=== PATIENT | male | born 1955 | race Caucasian/White ===

== ENCOUNTER 2021-03-15 00:49 | Inpatient (IN) | payer MEDICARE, MEDICAID ==
[2021-03-15 01:40] LABS: Actual Bicarbonate (HCO3a) 33.9 mEq/L (22-28); Analyzer IN Cardio ER; Base Excess (BEa) 7.1 mEq/L (-2.0 to +3.0); CO2 Tension 56.7 mmHg (35.0-45.0); Calcium, Ionized (arterial) 1.22 mmol/L (1.12-1.30); Carboxyhemoglobin (COHb) 0.3 gm% (0.0-3.0); Hemoglobin (Hb) 14.4 g/dL (14.0-18.0); O2 Tension (PaO2), arterial 71.2 mmHg (> 80.0); Potassium - ABG Lab 3.98 mmol/L (3.70-5.30); pH, Arterial 7.39 (7.35-7.45)
[2021-03-15 01:41] LABS: Puncture Site RRA
[2021-03-15 01:42] LABS: ALV-art Gradient 428.325 mmHg (0-20)
[2021-03-15 02:16] LABS: #Lymphocytes 0.9 thou/uL (1.20-3.40); #Neutrophils 10.1 thou/uL (1.40-6.50); %Basophils 0.2 % (0.0-1.0); %Eosinophils 0.2 % (0.0-10.0); %Lymphocytes 7.4 % (21.0-51.0); %Monocytes 8.6 % (0.0-10.0); %Neutrophils 83.6 % (42.0-75.0); Hemoglobin 13.3 g/dL (14.0-18.0); Mean Corpuscular Hemoglobin 26.5 pg (27.0-31.0); Mean Corpuscular Volume 80.2 fL (78.0-98.0); Mean Platelet Volume 7.2 fL (7.4-10.4); Platelet Count 405 thou/uL (130-400); RBC Distribution Width 15.2 % (11.5-14.5); Red Blood Cell (RBC) Count 5.02 mill/uL (4.70-6.10); White Blood Cell (WBC) Count 12.1 thou/uL (4.8-10.8)
[2021-03-15 02:40] LABS: ALT (SGPT) 18 U/L (8-55); AST (SGOT) 11 U/L (5-34); Albumin 3.8 g/dL (3.4-4.8); Alkaline Phosphatase 87 U/L (40-110); Anion Gap 18 mmol/L (10-20); BUN (Urea Nitrogen) 36 mg/dL (8.4-25.7); Bilirubin, Total 0.4 mg/dL (0.2-1.2); Calc. Creatinine Clearance 0 mL/min (70-130); Calcium 10.2 mg/dL (7.8-10.44); Carbon Dioxide 33 mmol/L (23-31); Chloride 87 mmol/L (98-107); Glucose 415 mg/dL (80-115); Magnesium 2.5 mg/dL (1.6-2.6); Potassium 4.2 mmol/L (3.5-5.1); Protein, Total 7.8 g/dL (5.8-8.1); Sodium 134 mmol/L (136-145)
[2021-03-15] MEDS ORDERED: Ondansetron PF 4 MG/2 ML Vial IVP PRN (04:16)
[2021-03-15] MEDS ORDERED: Dextrose 5% in Water 1,000 ML IV PRN (04:23)
[2021-03-15] MEDS ORDERED: Dextrose 50% Abboject 50 ML SYRINGE SLOW IVP PRN (04:23)
[2021-03-15] MEDS ORDERED: Albuterol Sulfate 2.5 mg/3 ml Neb NEB PRN (04:37)
[2021-03-15 05:12] LABS: Troponin I Less than 0.010 ng/mL (< 0.028)
[2021-03-15] MEDS ORDERED: HumaLOG 300 UNITS/3 ML VIAL ONE (05:40)
[2021-03-15] MEDS: HumaLOG 300 UNITS/3 ML VIAL SC PRN ×3 (05:41→23:35)
[2021-03-15 07:06] LABS: Hemoglobin A1c Greater than 14.0 % (4.0-6.0)
[2021-03-15 07:24] LABS: Troponin I Less than 0.010 ng/mL (< 0.028)
[2021-03-15] MEDS: Dexamethasone 10 MG/ML VIAL SLOW IVP SCH (08:06)
[2021-03-15] MEDS: Ascorbic Acid 500 mg Chewable Tablet PO SCH (08:07)
[2021-03-15] MEDS: Famotidine 20 MG TAB PO SCH ×2 (08:07→20:38)
[2021-03-15] MEDS: Zinc Sulfate 220 MG CAP PO SCH (08:07)
[2021-03-15] MEDS: Enoxaparin Sodium 40 MG/0.4 ML SYRINGE SC SCH ×2 (08:07→20:38)
[2021-03-15] MEDS: Sodium Chloride 0.45% 1,000 ML IV SCH (10:28)
[2021-03-15] MEDS: hydrOXYzine 25 MG TAB PO PRN (11:09)
[2021-03-16] MEDS: Acetaminophen 325 MG TAB PO PRN ×2 (02:02→09:41)
[2021-03-16 04:46] LABS: Anion Gap 14 mmol/L (10-20); BUN (Urea Nitrogen) 21 mg/dL (8.4-25.7); Calc. Creatinine Clearance 182 mL/min (70-130); Calcium 9.4 mg/dL (7.8-10.44); Carbon Dioxide 33 mmol/L (23-31); Chloride 89 mmol/L (98-107); Glucose 210 mg/dL (80-115); Potassium 3.5 mmol/L (3.5-5.1); Sodium 132 mmol/L (136-145)
[2021-03-16] MEDS: HumaLOG 300 UNITS/3 ML VIAL SC PRN ×5 (04:50→23:52)
[2021-03-16 05:15] VITALS: BMI 44.6
[2021-03-16] MEDS: Sodium Chloride 0.45% 1,000 ML IV SCH ×2 (05:22→23:18)
[2021-03-16 06:47] LABS: Band 8 % (5-11); Hemoglobin 12.2 g/dL (14.0-18.0); Lymphocytes 15 % (21-51); MDiff Complete? YES; Mean Corpuscular HGB CONC 30.9 g/dL (32.0-36.0); Mean Corpuscular Hemoglobin 25.2 pg (27.0-31.0); Mean Corpuscular Volume 81.6 fL (78.0-98.0); Monocytes 12 % (0-10); Neutrophil 65 % (42-75); Platelet Count 405 thou/uL (130-400); RBC Distribution Width 14.9 % (11.5-14.5); Red Blood Cell (RBC) Count 4.87 mill/uL (4.70-6.10); White Blood Cell (WBC) Count 13.8 thou/uL (4.8-10.8)
[2021-03-16] MEDS ORDERED: FLU VACC QS2021-22(65YR UP)/PF 240 MCG/0.7 ML SYRINGE IM ONE (09:00)
[2021-03-16] MEDS: Zinc Sulfate 220 MG CAP PO SCH (09:41)
[2021-03-16] MEDS: Ascorbic Acid 500 mg Chewable Tablet PO SCH (09:41)
[2021-03-16] MEDS: Famotidine 20 MG TAB PO SCH ×2 (09:42→20:14)
[2021-03-16] MEDS: Enoxaparin Sodium 40 MG/0.4 ML SYRINGE SC SCH ×2 (09:42→20:14)
[2021-03-16] MEDS: Dexamethasone 10 MG/ML VIAL SLOW IVP SCH (09:46)
[2021-03-16] MEDS: hydrOXYzine 25 MG TAB PO PRN (09:47)
[2021-03-16] MEDS ORDERED: Polyethylene Glycol 3350 17 GM Packet PO PRN (10:22)
[2021-03-16] MEDS ORDERED: HYDROcodone/Acetaminophen 5/325 mg Tablet PO PRN (10:22)
[2021-03-16] MEDS ORDERED: Lantus 1000 UNITS/10 ML VIAL SC SCH ×2 (11:00→21:00)
[2021-03-16] MEDS ORDERED: Nicotine 21 MG PATCH TD SCH (11:00)
[2021-03-16] MEDS: Gabapentin 100 MG CAP PO SCH ×2 (14:08→20:15)
[2021-03-16] MEDS: Carvedilol 6.25 MG TAB PO SCH (20:14)
[2021-03-16] MEDS: Latanoprost 0.005% Ophth Soln 2.5 ml Bottle EA EYE SCH (20:17)
[2021-03-16] MEDS: Lisinopril 10 MG TAB PO SCH (20:19)
[2021-03-17 03:39] LABS: #Eosinphils 0.1 thou/uL (0.0-0.7); #Lymphocytes 1.2 thou/uL (1.20-3.40); #Monocytes 0.9 thou/uL (0.11-0.59); #Neutrophils 9.2 thou/uL (1.40-6.50); %Eosinophils 1.1 % (0.0-10.0); %Lymphocytes 10.8 % (21.0-51.0); %Monocytes 7.8 % (0.0-10.0); %Neutrophils 80.3 % (42.0-75.0); Hemoglobin 12.7 g/dL (14.0-18.0); Mean Corpuscular HGB CONC 32.2 g/dL (32.0-36.0); Mean Corpuscular Hemoglobin 26.6 pg (27.0-31.0); Mean Corpuscular Volume 82.7 fL (78.0-98.0); Mean Platelet Volume 6.6 fL (7.4-10.4); Platelet Count 387 thou/uL (130-400); RBC Distribution Width 15.2 % (11.5-14.5); Red Blood Cell (RBC) Count 4.76 mill/uL (4.70-6.10); White Blood Cell (WBC) Count 11.5 thou/uL (4.8-10.8)
[2021-03-17 04:02] LABS: Anion Gap 15 mmol/L (10-20); BUN (Urea Nitrogen) 15 mg/dL (8.4-25.7); Calc. Creatinine Clearance 170 mL/min (70-130); Calcium 9.6 mg/dL (7.8-10.44); Carbon Dioxide 31 mmol/L (23-31); Chloride 89 mmol/L (98-107); Glucose 272 mg/dL (80-115); Potassium 4.1 mmol/L (3.5-5.1); Sodium 131 mmol/L (136-145)
[2021-03-17] MEDS: HumaLOG 300 UNITS/3 ML VIAL SC PRN ×4 (06:20→20:21)
[2021-03-17] MEDS ORDERED: Lantus 1000 UNITS/10 ML VIAL SC SCH ×2 (09:00→09:45)
[2021-03-17] MEDS: Enoxaparin Sodium 40 MG/0.4 ML SYRINGE SC SCH ×2 (09:46→20:20)
[2021-03-17] MEDS: Nicotine 21 MG PATCH TD SCH (09:46)
[2021-03-17] MEDS: Ascorbic Acid 500 mg Chewable Tablet PO SCH (09:47)
[2021-03-17] MEDS: Carvedilol 6.25 MG TAB PO SCH ×2 (09:47→20:18)
[2021-03-17] MEDS: Zinc Sulfate 220 MG CAP PO SCH (09:47)
[2021-03-17] MEDS: Famotidine 20 MG TAB PO SCH ×2 (09:47→20:19)
[2021-03-17] MEDS: Gabapentin 100 MG CAP PO SCH ×3 (09:47→20:19)
[2021-03-17] MEDS: Dexamethasone 10 MG/ML VIAL SLOW IVP SCH (09:48)
[2021-03-17] MEDS: Lisinopril 10 MG TAB PO SCH ×2 (09:49→20:19)
[2021-03-17] MEDS: Latanoprost 0.005% Ophth Soln 2.5 ml Bottle EA EYE SCH (20:20)
[2021-03-18] MEDS: HumaLOG 300 UNITS/3 ML VIAL SC PRN ×4 (04:28→20:51)
[2021-03-18 07:01] LABS: #Eosinphils 0.1 thou/uL (0.0-0.7); #Lymphocytes 1.6 thou/uL (1.20-3.40); #Monocytes 0.9 thou/uL (0.11-0.59); #Neutrophils 6.9 thou/uL (1.40-6.50); %Basophils 0.1 % (0.0-1.0); %Eosinophils 0.7 % (0.0-10.0); %Lymphocytes 16.8 % (21.0-51.0); %Monocytes 9.5 % (0.0-10.0); %Neutrophils 72.9 % (42.0-75.0); Hemoglobin 12.8 g/dL (14.0-18.0); Mean Corpuscular HGB CONC 31.9 g/dL (32.0-36.0); Mean Corpuscular Volume 81.4 fL (78.0-98.0); Mean Platelet Volume 6.7 fL (7.4-10.4); Platelet Count 408 thou/uL (130-400); Red Blood Cell (RBC) Count 4.93 mill/uL (4.70-6.10); White Blood Cell (WBC) Count 9.5 thou/uL (4.8-10.8)
[2021-03-18 07:17] LABS: Anion Gap 14 mmol/L (10-20); BUN (Urea Nitrogen) 15 mg/dL (8.4-25.7); Calc. Creatinine Clearance 183 mL/min (70-130); Calcium 9.6 mg/dL (7.8-10.44); Carbon Dioxide 28 mmol/L (23-31); Chloride 92 mmol/L (98-107); Glucose 224 mg/dL (80-115); Sodium 130 mmol/L (136-145)
[2021-03-18] MEDS: Carvedilol 6.25 MG TAB PO SCH ×3 (07:38→20:44)
[2021-03-18] MEDS: Zinc Sulfate 220 MG CAP PO SCH (07:38)
[2021-03-18] MEDS: Gabapentin 100 MG CAP PO SCH ×3 (07:38→20:44)
[2021-03-18] MEDS: Ascorbic Acid 500 mg Chewable Tablet PO SCH (07:39)
[2021-03-18] MEDS: Lisinopril 10 MG TAB PO SCH ×3 (07:39→20:45)
[2021-03-18] MEDS: Spironolactone 25 MG TAB PO SCH (07:39)
[2021-03-18] MEDS: Enoxaparin Sodium 40 MG/0.4 ML SYRINGE SC SCH (07:40)
[2021-03-18] MEDS: Dexamethasone 10 MG/ML VIAL SLOW IVP SCH (07:40)
[2021-03-18] MEDS: Nicotine 21 MG PATCH TD SCH (07:41)
[2021-03-18] MEDS: Famotidine 20 MG TAB PO SCH ×2 (07:42→20:45)
[2021-03-18] MEDS ORDERED: Lantus 1000 UNITS/10 ML VIAL SC SCH ×2 (09:00→21:00)
[2021-03-18] MEDS ORDERED: metFORMIN 500 MG TAB PO SCH (10:30)
[2021-03-18] MEDS: Lantus 1000 UNITS/10 ML VIAL SC SCH (11:30)
[2021-03-18] MEDS: metFORMIN 500 MG TAB PO SCH (15:42)
[2021-03-18 19:45] VITALS: TEMP 97.9
[2021-03-18] MEDS: Latanoprost 0.005% Ophth Soln 2.5 ml Bottle EA EYE SCH (20:50)
[2021-03-19] MEDS: HumaLOG 300 UNITS/3 ML VIAL SC PRN ×2 (05:53→11:49)
[2021-03-19 07:13] LABS: #Eosinphils 0.1 thou/uL (0.0-0.7); #Lymphocytes 1.5 thou/uL (1.20-3.40); #Monocytes 0.7 thou/uL (0.11-0.59); #Neutrophils 6.3 thou/uL (1.40-6.50); %Basophils 0.3 % (0.0-1.0); %Eosinophils 0.6 % (0.0-10.0); %Lymphocytes 17.8 % (21.0-51.0); %Monocytes 8.5 % (0.0-10.0); %Neutrophils 72.9 % (42.0-75.0); Mean Corpuscular HGB CONC 32.4 g/dL (32.0-36.0); Mean Corpuscular Volume 80.2 fL (78.0-98.0); Mean Platelet Volume 6.9 fL (7.4-10.4); Platelet Count 389 thou/uL (130-400); RBC Distribution Width 15.1 % (11.5-14.5); Red Blood Cell (RBC) Count 4.99 mill/uL (4.70-6.10); White Blood Cell (WBC) Count 8.7 thou/uL (4.8-10.8)
[2021-03-19 07:30] LABS: Anion Gap 14 mmol/L (10-20); BUN (Urea Nitrogen) 17 mg/dL (8.4-25.7); CRP (Inflammatory) 2.26 mg/dL (= or < 0.5); Calc. Creatinine Clearance 172 mL/min (70-130); Calcium 9.6 mg/dL (7.8-10.44); Carbon Dioxide 28 mmol/L (23-31); Chloride 91 mmol/L (98-107); Glucose 226 mg/dL (80-115); Potassium 4.2 mmol/L (3.5-5.1); Sodium 129 mmol/L (136-145)
[2021-03-19] MEDS: Gabapentin 100 MG CAP PO SCH ×2 (08:19→15:52)
[2021-03-19] MEDS: Ascorbic Acid 500 mg Chewable Tablet PO SCH (08:19)
[2021-03-19] MEDS: Spironolactone 25 MG TAB PO SCH (08:20)
[2021-03-19] MEDS: Famotidine 20 MG TAB PO SCH (08:20)
[2021-03-19] MEDS: Carvedilol 6.25 MG TAB PO SCH (08:20)
[2021-03-19] MEDS: metFORMIN 500 MG TAB PO SCH (08:20)
[2021-03-19] MEDS: Zinc Sulfate 220 MG CAP PO SCH (08:20)
[2021-03-19] MEDS: Lisinopril 10 MG TAB PO SCH (08:21)
[2021-03-19] MEDS: Lantus 1000 UNITS/10 ML VIAL SC SCH (08:21)
[2021-03-19] MEDS: Nicotine 21 MG PATCH TD SCH (08:21)
[2021-03-19 08:57] VITALS: BP 133/73
[2021-03-19] MEDS ORDERED: Enoxaparin Sodium 40 MG/0.4 ML SYRINGE SC SCH (09:00)
== END 2021-03-19 15:52 | disposition home or self-care (01) | DRG 177 ==
LOC: ERS 00:49 → ERHOLD 04:08 → CCU 08:47 → IMCU/EMU 03-16 21:47 → T4-A 03-17 17:52
PROVIDERS: ADMIT Internal Medicine; ATTEND Internal Medicine
PROC: 3E0333Z Introduction of Anti-inflammatory into Peripheral Vein, Percutaneous Approach (ICD-10-PCS; principal; 2021-03-15)
PROC: 5A09357 Assistance with Respiratory Ventilation, Less than 24 Consecutive Hours, Continuous Positive Airway Pressure (ICD-10-PCS; 2021-03-15)
PROC: 8E0ZXY6 Isolation (ICD-10-PCS; 2021-03-15)
DX: U07.1 COVID-19 (principal); J12.82 Pneumonia due to coronavirus disease 2019; E11.00 Type 2 diabetes mellitus with hyperosmolarity without nonketotic hyperglycemic-hyperosmolar coma (NKHHC); J96.21 Acute and chronic respiratory failure with hypoxia; J44.0 Chronic obstructive pulmonary disease with (acute) lower respiratory infection; E66.2 Morbid (severe) obesity with alveolar hypoventilation; Z68.41 Body mass index [BMI] 40.0-44.9, adult; I42.9 Cardiomyopathy, unspecified; G89.29 Other chronic pain; M54.9 Dorsalgia, unspecified; G31.84 Mild cognitive impairment of uncertain or unknown etiology; I73.9 Peripheral vascular disease, unspecified; I50.9 Heart failure, unspecified; F17.210 Nicotine dependence, cigarettes, uncomplicated; E11.65 Type 2 diabetes mellitus with hyperglycemia; Z28.21 Immunization not carried out because of patient refusal; Z87.440 Personal history of urinary (tract) infections; Z82.49 Family history of ischemic heart disease and other diseases of the circulatory system; Z79.899 Other long term (current) drug therapy; Z79.52 Long term (current) use of systemic steroids
CPT/HCPCS: 36415; 36416; 36600; 71045; 80048; 80053; 82010; 82274; 82805; 83036; 83735; 83880; 84484; 85025; 85379; 86140; 94660; J1100; J1650; J1815